=== PATIENT | female | born 1985 | race American Indian/Alaskan Native ===

== ENCOUNTER 2016-11-26 16:42 | Outpatient (CLI) | payer MEDICAID ==
[2016-11-26] MEDS ORDERED: LACTATED RINGERS 500 ML IV ONE (17:22)
[2016-11-26 18:57] LABS: Hematocrit 33.3 % (30.3-42.9); Hemoglobin 10.5 gm/dl (10.1-14.3); Mean Corpuscular HGB Conc 32 % (30-34); Mean Corpuscular Volume 79 fl (79-97); Platelet Count 213 K/mm3 (140-440); Red Blood Count 4.24 M/mm3 (3.65-5.03); Red Cell Distribution Width 15.9 % (13.2-15.2); White Blood Count 8.3 K/mm3 (4.5-11.0)
[2016-11-26 18:59] LABS: Mean Corpuscular Hemoglobin 25 pg (28-32)
[2016-11-26 19:00] LABS: Bacteria,Urine 4+ /HPF (Negative); Bilirubin,Urine NEG (Negative); Blood,Urine NEG (Negative); Ketones,Urine 80 mg/dL (Negative); Leukocyte Esterase,Urine NEG (Negative); Mucus,Urine FEW /HPF; Nitrite,Urine NEG (Negative); Urobilinogen,Urine < 2.0 mg/dL (<2.0)
[2016-11-26 19:13] LABS: Lactate Dehydrogenase 139 units/L (91-180); Uric Acid 6.3 mg/dL (3.5-7.6)
[2016-11-26 19:23] LABS: Alanine Aminotransferase < 5 units/L (7-56)
[2016-11-26 20:00] VITALS: BP 103/55
[2016-11-26] MEDS ORDERED: VISTARIL PO ONE (20:19)
== END 2016-11-26 20:58 | disposition home or self-care (01) ==
LOC: TRG 16:42
PROVIDERS: ATTEND Obstetrics & Gynecology
DX: O47.03 False labor before 37 completed weeks of gestation, third trimester (principal); Z3A.36 36 weeks gestation of pregnancy
CPT/HCPCS: 36415; 81001; 82565; 83615; 84450; 84460; 84550; 85027; Q0177

== ENCOUNTER 2016-12-10 08:11 | Inpatient (IN) | payer MEDICAID ==
[2016-12-10] MEDS ORDERED: LACTATED RINGERS 1,000 ML ONE (08:27)
--- NOTE | 2016-12-10 09:11 | Ultrasound Report ---
OB LIMITED INDICATION: Presentation. COMPARISON: None similar at this institution. TECHNIQUE: Transabdominal grayscale ultrasound with Doppler interrogation. Gestation: Duron Position: Cephalic, face up Heart Rate: 150 BPM
[2016-12-10 10:48] LABS: Hematocrit 31.9 % (30.3-42.9); Hemoglobin 10.1 gm/dl (10.1-14.3); Mean Corpuscular HGB Conc 32 % (30-34); Mean Corpuscular Volume 76 fl (79-97); Platelet Count 202 K/mm3 (140-440); Red Blood Count 4.22 M/mm3 (3.65-5.03); Red Cell Distribution Width 16.7 % (13.2-15.2); White Blood Count 8.4 K/mm3 (4.5-11.0)
[2016-12-10] MEDS: PITOCin/NS 30 UNIT/500ML 30 UNITS/500 ML BAG IV SCH ×8 (10:50→15:39)
[2016-12-10 10:51] LABS: Mean Corpuscular Hemoglobin 24 pg (28-32)
[2016-12-10] MEDS ORDERED: MINERAL OIL PO PRN (11:00)
[2016-12-10] MEDS ORDERED: NARCAN 0.4 MG/1 ML IV PRN (11:00)
[2016-12-10] MEDS ORDERED: SUBLIMAZE IV PRN (11:00)
[2016-12-10] MEDS ORDERED: ZOFRAN IV PRN ×2 (11:00→22:37)
[2016-12-10] MEDS ORDERED: XYLOCAINE 2% INFILTRATI ONE ×2 (11:00→19:37)
[2016-12-10] MEDS ORDERED: PEPCID IV SCH (11:00)
[2016-12-10] MEDS ORDERED: PITOCin/NS 20 UNIT/1000ML DRIP 20 UNITS/1,000 ML BAG IV SCH (11:00)
[2016-12-10] MEDS ORDERED: STADOL IV PRN (11:00)
[2016-12-10] MEDS ORDERED: ePHEDrine SULFATE IV PRN ×2 (11:00→14:39)
[2016-12-10] MEDS ORDERED: BRETHINE SUB-Q PRN (11:00)
[2016-12-10] MEDS ORDERED: PERCOCET 5/325 PO PRN (11:00)
[2016-12-10] MEDS: LACTATED RINGERS 1,000 ML IV SCH ×3 (11:04→14:10)
[2016-12-10] MEDS ORDERED: BRETHINE IVP PRN (11:30)
--- NOTE | 2016-12-10 11:42 | History and Physical Report ---
History of Present Illness Date of examination: 12/10/16 Date of admission: 12/10/16 08:37 Chief complaint: My water broke (clear fluid) at 0705 this morning. History of present illness: Late transfer of care at 34 1/7 Weeks from My [employer], co managed with [facility] due to obesity and excessive Ibuprofen use. Non-compliant with 3hour GTT; abnormal 1hour GTT. 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 Hx of Piuitary Adenoma. course complicated by Chronic low back pain and a abnormal Quad screen (managed by [facility]). Past History Past Medical History: other (Pituitary Ademona) Past Surgical History: cholecystectomy (2008), section (2013), other ( Brain (2014)) Family/Genetic History: diabetes ((MGM, MGF)), hypertension (MGM), stroke ( father, MGM), cancer (PGF: Stomach Ca) Social history: - Obstetrical History Expected Date of Delivery: 12/22/16 Actual Gestation: 38 Week(s) 2 Day(s) : 8 Para: 3 Hx # Term Pregnancies: 4 Number of Living Children: 4 #1 Gender: Male year: 2,[birth year] Birthweight: 4.054 kg Method of Delivery: Vaginal Gestational age at delivery: 41 Complications: none #2 Infant Gender: Female year: 2,009 Birthweight: 3.26 kg Method of Delivery: Vaginal Gestational age at delivery: 39 #3 Infant Gender: Female year: 2,014 Birthweight: 3.118 kg Method of Delivery: Gestational age at delivery: 39 Complications: none #4 Gender: Female year: 2,006 Birthweight: 3.005 kg Method of Delivery: Gestational age at delivery: 39 Medications and Allergies Allergies Allergy/AdvReac Type Severity Reaction Status Date / Time metoclopramide HCl Allergy Severe Swelling Verified 11/26/16 17:20 [From Reglan] Penicillins Allergy Severe Swelling Verified 11/26/16 17:20 Home Medications Medication Instructions Recorded Confirmed Last Taken Type No Known Home Medications [No 12/10/16 12/10/16 Unknown History Reported Home Medications] Active Meds: Active Medications Butorphanol Tartrate (Stadol) 2 mg IV Q2H PRN PRN Reason: Pain , Severe (7-10) Ephedrine Sulfate (Ephedrine Sulfate) 10 mg IV Q2M PRN PRN Reason: Hypotension Stop: 12/11/16 10:59 Famotidine (Pepcid) 20 mg IV BID COREY Last Admin: 12/10/16 11:05 Dose: 20 mg Fentanyl (Sublimaze) 100 mcg IV Q2H PRN PRN Reason: Labor Pain Lactated Ringer's (Lactated Ringers) 1,000 mls @ 125 mls/hr IV DIRECT COREY Last Admin: 12/10/16 11:04 Dose: 125 mls/hr Oxytocin/Sodium Chloride (Pitocin/Ns 20 Unit/1000ml Drip) 20 units in 1,000 mls @ 125 mls/hr IV DIRECT COREY Oxytocin/Sodium Chloride (Pitocin/Ns 30 Unit/500ml) 30 units in 500 mls @ 2 mls /hr IV TITR CROEY; 2 MILLIUNITS/MIN PRN Reason: Protocol Last Admin: 12/10/16 11:24 Dose: 4 milliunits/min, 4 mls/hr Influenza Virus Vaccine Quadrival (Fluarix Quad 4067-0251(36 Mos+)) 0.5 ml IM .ONCE ONE Stop: 12/11/16 12:01 Mineral Oil (Mineral Oil) 30 ml PO QHS PRN PRN Reason: Constipation Naloxone HCl (Narcan 0.4 Mg/1 Ml) 0.1 mg IV Q2MIN PRN PRN Reason: Res Rate </= 8 or 02 SAT < 92% Ondansetron HCl (Zofran) 4 mg IV Q8H PRN PRN Reason: Nausea And Vomiting Oxycodone/Acetaminophen (Percocet 5/325) 2 tab PO Q6H PRN PRN Reason: Pain, Moderate (4-6) Last Admin: 12/10/16 11:09 Dose: 2 tab Review of Systems All systems: negative - Vital Signs Vital signs: Vital Signs Temp Pulse Resp BP Pulse Ox 98.6 F 123 H 20 131/82 99 12/10/16 09:54 12/10/16 09:54 12/10/16 09:54 12/10/16 09:54 12/10/16 09:54 Temp Pulse Resp BP Pulse Ox 98.6 F 121 H 20 141/68 98 12/10/16 09:54 12/10/16 11:28 12/10/16 10:53 12/10/16 11:28 12/10/16 10:41 - Physical Exam Breasts: Positive: normal Cardiovascular: Regular rate Lungs: Positive: Clear to auscultation, Normal air movement Abdomen: Positive: normal appearance, soft, normal bowel sounds Genitourinary (Female): Positive: normal external genitalia, normal perenium Uterus: Positive: enlarged Anus/Rectum: Positive: normal perianal skin Extremities: Positive: normal - Obstetrical FHR: category 1 Cervical Dilatation: 4 (Vtx, leaking a moderate amount of clear fluid) Cervical Effacement Percentage: 60 station: -3 Uterine Contraction Pattern: Irregular Uterine Tone Measurement Phase: Resting Uterine Contraction Intensity: Mild Results Result Diagrams: 12/10/16 09:25 Abnormal lab results 12/10/16 Range/Units 09:25 MCV 76 L (79-97) fl MCH 24 L (28-32) pg RDW 16.7 H (13.2-15.2) % All other labs normal. Assessment and Plan A: IUP @ 38 2/7 Weeks Category I Tracing PROM Previous GBS Negative P: Admit to L&D per Routine orders IUPC Pitocin Induction Consult with Dr. Augilar due to Previous
[2016-12-10] MEDS ORDERED: NARCAN 2 MG/2 ML IV PRN (14:33)
--- NOTE | 2016-12-10 14:33 | Anesthesia Consultation ---
Anesthesia Consult and Med Hx Date of service: 12/10/16 - Airway Anesthetic Teeth Evaluation: Good ROM Head & Neck: Adequate Mental/Hyoid Distance: Adequate Mallampati Class: Class II Intubation Access Assessment: Good - Pulmonary Exam CTA: Yes - Cardiac Exam Cardiac Exam: No Murmur - Pre-Operative Health Status ASA Pre-Surgery Classification: ASA2 Proposed Anesthetic Plan: Epidural - Pulmonary Hx Asthma: No - Cardiovascular System Hx Hypertension: No - Central Nervous System Hx Seizures: No Hx Psychiatric Problems: No - Endocrine Hx Renal Disease: No Hx Hypothyroidism: No Hx Hyperthyroidism: No - Hematic Hx Anemia: No Hx Sickle Cell Disease: No - Other Systems Hx Alcohol Use: No
[2016-12-10] MEDS ORDERED: fentaNYL-BUPIV 2 MCG/ML-0.125% 200 MCG/100 ML BAG EPIDURAL SCH (15:00)
[2016-12-10] MEDS ORDERED: XYLOCAINE MPF 2% ONE (16:00)
--- NOTE | 2016-12-10 16:04 | Progress Note ---
Subjective Date of service: 12/10/16 (10 cc epidural bolus of 2% MPF lidocaine for pain relief @ 2935.) Objective - Constitutional Vitals: Vital Signs - 12hr 12/10/16 12/10/16 12/10/16 09:54 09:56 09:57 Temperature 98.6 F Pulse Rate 123 H 120 H 123 H Respiratory 20 Rate Blood Pressure 131/82 Blood Pressure 131/82 [Right] O2 Sat by Pulse 99 99 Oximetry 12/10/16 12/10/16 12/10/16 10:36 10:41 10:53 Temperature Pulse Rate 121 H 129 H 122 H Respiratory 20 Rate Blood Pressure Blood Pressure 114/65 [Right] O2 Sat by Pulse 98 98 Oximetry 12/10/16 12/10/16 12/10/16 10:55 11:28 11:56 Temperature Pulse Rate 122 H 121 H 129 H Respiratory Rate Blood Pressure 114/65 141/68 129/68 Blood Pressure [Right] O2 Sat by Pulse Oximetry 12/10/16 12/10/16 12/10/16 12:24 13:00 13:23 Temperature Pulse Rate 112 H 118 H 107 H Respiratory Rate Blood Pressure 115/64 124/72 130/78 Blood Pressure [Right] O2 Sat by Pulse Oximetry 12/10/16 12/10/16 12/10/16 13:26 13:31 13:36 Temperature Pulse Rate 114 H 109 H 122 H Respiratory Rate Blood Pressure Blood Pressure [Right] O2 Sat by Pulse 96 97 97 Oximetry 12/10/16 12/10/16 12/10/16 13:41 13:46 13:51 Temperature Pulse Rate 107 H 115 H 115 H Respiratory Rate Blood Pressure Blood Pressure [Right] O2 Sat by Pulse 97 97 98 Oximetry 12/10/16 12/10/16 12/10/16 13:56 13:57 14:01 Temperature Pulse Rate 113 H 114 H 118 H Respiratory Rate Blood Pressure 124/80 Blood Pressure [Right] O2 Sat by Pulse 98 98 Oximetry 12/10/16 12/10/16 12/10/16 14:59 15:01 15:02 Temperature Pulse Rate 123 H 136 H 146 H Respiratory Rate Blood Pressure 129/79 109/65 101/61 Blood Pressure [Right] O2 Sat by Pulse Oximetry 12/10/16 12/10/16 12/10/16 15:05 15:06 15:09 Temperature Pulse Rate 129 H 129 H 139 H Respiratory Rate Blood Pressure 120/68 120/73 106/61 Blood Pressure [Right] O2 Sat by Pulse 97 Oximetry 12/10/16 12/10/16 12/10/16 15:11 15:12 15:14 Temperature Pulse Rate 126 H 121 H 127 H Respiratory Rate Blood Pressure 133/75 130/70 121/66 Blood Pressure [Right] O2 Sat by Pulse 97 Oximetry 12/10/16 12/10/16 12/10/16 15:16 15:19 15:21 Temperature Pulse Rate 126 H 118 H 117 H Respiratory Rate Blood Pressure 127/71 140/93 130/75 Blood Pressure [Right] O2 Sat by Pulse 96 Oximetry 12/10/16 12/10/16 12/10/16 15:22 15:27 15:32 Temperature Pulse Rate 115 H 116 H 123 H Respiratory Rate Blood Pressure Blood Pressure [Right] O2 Sat by Pulse 97 97 98 Oximetry 12/10/16 12/10/16 12/10/16 15:36 15:37 15:42 Temperature Pulse Rate 115 H 118 H 114 H Respiratory Rate Blood Pressure 121/76 Blood Pressure [Right] O2 Sat by Pulse 98 98 Oximetry 12/10/16 12/10/16 12/10/16 15:47 15:51 15:52 Temperature Pulse Rate 108 H 112 H 114 H Respiratory Rate Blood Pressure 133/86 Blood Pressure [Right] O2 Sat by Pulse 99 95 Oximetry 12/10/16 12/10/16 15:57 16:02 Temperature Pulse Rate 114 H 120 H Respiratory Rate Blood Pressure Blood Pressure [Right] O2 Sat by Pulse 93 98 Oximetry - Labs CBC & Chem 7: 12/10/16 09:25 Labs: Abnormal lab results 12/10/16 Range/Units 09:25 MCV 76 L (79-97) fl MCH 24 L (28-32) pg RDW 16.7 H (13.2-15.2) %
--- NOTE | 2016-12-10 17:09 | Progress Note ---
Assessment and Plan A: IUP @ 38 3/7 Weeks P: -Position changes -Continue present care -Anticipate normal vaginal delivery Subjective - Subjective Date of service: 12/10/16 Interval history: Patient currently 5-6 cm dilated, -3 station. appears OP position Patient reports: movement normal, contractions, no loss of fluid, no vaginal bleeding Objective - Vital Signs Vital Signs: Vital Signs - 12hr 12/10/16 12/10/16 12/10/16 09:54 09:56 09:57 Temperature 98.6 F Pulse Rate 123 H 120 H 123 H Respiratory 20 Rate Blood Pressure 131/82 Blood Pressure 131/82 [Right] O2 Sat by Pulse 99 99 Oximetry 12/10/16 12/10/16 12/10/16 10:36 10:41 10:53 Temperature Pulse Rate 121 H 129 H 122 H Respiratory 20 Rate Blood Pressure Blood Pressure 114/65 [Right] O2 Sat by Pulse 98 98 Oximetry 12/10/16 12/10/16 12/10/16 10:55 11:28 11:56 Temperature Pulse Rate 122 H 121 H 129 H Respiratory Rate Blood Pressure 114/65 141/68 129/68 Blood Pressure [Right] O2 Sat by Pulse Oximetry 12/10/16 12/10/16 12/10/16 12:24 13:00 13:23 Temperature Pulse Rate 112 H 118 H 107 H Respiratory Rate Blood Pressure 115/64 124/72 130/78 Blood Pressure [Right] O2 Sat by Pulse Oximetry 12/10/16 12/10/16 12/10/16 13:26 13:31 13:36 Temperature Pulse Rate 114 H 109 H 122 H Respiratory Rate Blood Pressure Blood Pressure [Right] O2 Sat by Pulse 96 97 97 Oximetry 12/10/16 12/10/16 12/10/16 13:41 13:46 13:51 Temperature Pulse Rate 107 H 115 H 115 H Respiratory Rate Blood Pressure Blood Pressure [Right] O2 Sat by Pulse 97 97 98 Oximetry 12/10/16 12/10/16 12/10/16 13:56 13:57 14:01 Temperature Pulse Rate 113 H 114 H 118 H Respiratory Rate Blood Pressure 124/80 Blood Pressure [Right] O2 Sat by Pulse 98 98 Oximetry 12/10/16 12/10/16 12/10/16 14:59 15:01 15:02 Temperature Pulse Rate 123 H 136 H 146 H Respiratory Rate Blood Pressure 129/79 109/65 101/61 Blood Pressure [Right] O2 Sat by Pulse Oximetry 12/10/16 12/10/16 12/10/16 15:05 15:06 15:09 Temperature Pulse Rate 129 H 129 H 139 H Respiratory Rate Blood Pressure 120/68 120/73 106/61 Blood Pressure [Right] O2 Sat by Pulse 97 Oximetry 12/10/16 12/10/16 12/10/16 15:11 15:12 15:14 Temperature Pulse Rate 126 H 121 H 127 H Respiratory Rate Blood Pressure 133/75 130/70 121/66 Blood Pressure [Right] O2 Sat by Pulse 97 Oximetry 12/10/16 12/10/16 12/10/16 15:16 15:19 15:21 Temperature Pulse Rate 126 H 118 H 117 H Respiratory Rate Blood Pressure 127/71 140/93 130/75 Blood Pressure [Right] O2 Sat by Pulse 96 Oximetry 12/10/16 12/10/16 12/10/16 15:22 15:27 15:32 Temperature Pulse Rate 115 H 116 H 123 H Respiratory Rate Blood Pressure Blood Pressure [Right] O2 Sat by Pulse 97 97 98 Oximetry 12/10/16 12/10/16 12/10/16 15:36 15:37 15:42 Temperature Pulse Rate 115 H 118 H 114 H Respiratory Rate Blood Pressure 121/76 Blood Pressure [Right] O2 Sat by Pulse 98 98 Oximetry 12/10/16 12/10/16 12/10/16 15:47 15:51 15:52 Temperature Pulse Rate 108 H 112 H 114 H Respiratory Rate Blood Pressure 133/86 Blood Pressure [Right] O2 Sat by Pulse 99 95 Oximetry 12/10/16 12/10/16 12/10/16 15:57 16:02 16:06 Temperature Pulse Rate 114 H 120 H 126 H Respiratory Rate Blood Pressure 138/80 Blood Pressure [Right] O2 Sat by Pulse 93 98 Oximetry 12/10/16 12/10/16 12/10/16 16:07 16:12 16:15 Temperature Pulse Rate 118 H 131 H 125 H Respiratory Rate Blood Pressure Blood Pressure [Right] O2 Sat by Pulse 95 97 91 Oximetry 12/10/16 12/10/16 12/10/16 16:17 16:21 16:22 Temperature Pulse Rate 121 H 124 H 128 H Respiratory Rate Blood Pressure 130/70 Blood Pressure [Right] O2 Sat by Pulse 97 92 93 Oximetry 12/10/16 12/10/16 12/10/16 16:27 16:28 16:32 Temperature Pulse Rate 130 H 126 H 123 H Respiratory Rate Blood Pressure Blood Pressure [Right] O2 Sat by Pulse 97 94 98 Oximetry 12/10/16 12/10/16 12/10/16 16:36 16:37 16:38 Temperature Pulse Rate 126 H 135 H 128 H Respiratory Rate Blood Pressure 132/89 Blood Pressure [Right] O2 Sat by Pulse 96 90 Oximetry 12/10/16 12/10/16 12/10/16 16:42 16:47 16:52 Temperature Pulse Rate 133 H 133 H 129 H Respiratory Rate Blood Pressure 130/73 Blood Pressure [Right] O2 Sat by Pulse 98 98 97 Oximetry 12/10/16 12/10/16 12/10/16 16:57 16:59 17:02 Temperature Pulse Rate 134 H 130 H 148 H Respiratory Rate Blood Pressure 133/77 160/65 Blood Pressure [Right] O2 Sat by Pulse 98 Oximetry 12/10/16 12/10/16 17:07 17:09 Temperature Pulse Rate 126 H 121 H Respiratory Rate Blood Pressure 112/62 110/60 Blood Pressure [Right] O2 Sat by Pulse Oximetry - Exam Cervical Dilatation: 5.5 station: -3 - Labs Labs: Abnormal Labs 12/10/16 09:25 MCV 76 L MCH 24 L RDW 16.7 H Laboratory Results - last 24 hr 12/10/16 12/10/16 12/10/16 09:25 09:25 09:25 WBC 8.4 RBC 4.22 Hgb 10.1 Hct 31.9 MCV 76 L MCH 24 L MCHC 32 RDW 16.7 H Plt Count 202 RPR Nonreactive Blood Type O POSITIVE Antibody Screen Negative
[2016-12-10] MEDS ORDERED: METHERGINE IM ONE ×2 (21:00→21:06)
[2016-12-10] MEDS ORDERED: CYTOTEC PR ONE (21:00)
[2016-12-10] MEDS ORDERED: CYTOTEC ONE (21:06)
--- NOTE | 2016-12-10 22:36 | Procedure Note ---
OB Delivery Note - Delivery Date of Delivery: 12/10/16 Estimated blood loss: 200cc - Vaginal Delivery presentation: vertex Delivery position: OA Delivery induction: oxytocin Delivery augmentation: pitocin Delivery monitor: external FHT, internal uterine Route of delivery: Delivery placenta: spontaneous Delivery cord: 3 umbilical vessels Episiotomy: none Delivery laceration: 1st degree Delivery repair: vicryl Anesthesia: epidural - A at 1 minute: 7 at 5 minutes: 9 Gender: Male (delivery at 20:58, weight is 7#11 or 3485 g)
[2016-12-10] MEDS ORDERED: TYLENOL PO PRN (22:37)
[2016-12-10] MEDS ORDERED: DULCOLAX PR PRN (22:37)
[2016-12-10] MEDS ORDERED: ANUCORT-HC PR PRN (22:37)
[2016-12-10] MEDS ORDERED: PHENERGAN PR PRN (22:37)
[2016-12-10] MEDS ORDERED: MILK OF MAGNESIA PO PRN (22:37)
[2016-12-10] MEDS ORDERED: TUCKS PAD TP PRN (22:37)
[2016-12-10] MEDS ORDERED: LANSINOH TP PRN (22:37)
[2016-12-10] MEDS ORDERED: DERMOPLAST TP PRN (22:37)
[2016-12-10] MEDS ORDERED: PHENERGAN PO PRN (22:37)
[2016-12-10] MEDS ORDERED: BENADRYL PO PRN (22:37)
[2016-12-10] MEDS ORDERED: SODIUM CHLORIDE FLUSH SYRINGE 10 ML IV PRN (23:00)
[2016-12-10] MEDS ORDERED: SENOKOT S PO SCH (23:00)
[2016-12-11] MEDS: PERCOCET 5/325 PO PRN ×5 (00:26→21:07)
[2016-12-11] MEDS: MOTRIN PO SCH ×4 (00:26→18:30)
--- NOTE | 2016-12-11 09:58 | Progress Note ---
Subjective - Subjective Date of service: 12/11/16 Principal diagnosis: Patient reports: appetite normal : doing well Objective - Vital Signs Latest vital signs: Vital Signs Temp Pulse Resp BP BP Pulse Ox 12/11/16 04:35 99.3 F 111 H 101/60 12/11/16 00:00 98.9 F 121 H 20 115/60 12/10/16 23:30 99.9 F H 125 H 20 146/76 12/10/16 22:48 125 H 99 12/10/16 22:43 129 H 97 12/10/16 22:38 121 H 144/89 99 12/10/16 22:33 122 H 98 12/10/16 22:30 126 H 141/69 12/10/16 22:29 122 H 159/59 12/10/16 22:28 124 H 98 12/10/16 22:23 126 H 182/73 98 12/10/16 22:22 121 H 76 L 12/10/16 22:11 120 H 98 12/10/16 22:08 120 H 127/86 12/10/16 22:06 122 H 99 12/10/16 22:02 85 12/10/16 22:01 125 H 100 12/10/16 22:00 125 H 122/62 12/10/16 21:58 126 H 152/81 12/10/16 21:57 125 H 151/100 12/10/16 21:56 119 H 100 12/10/16 21:55 117 H 152/101 12/10/16 21:54 120 H 147/100 12/10/16 21:53 130 H 146/103 12/10/16 21:51 124 H 99 12/10/16 21:41 126 H 143/101 12/10/16 21:35 32 L 72 L 12/10/16 21:32 131 H 100 12/10/16 21:27 139 H 138/88 99 12/10/16 20:29 131 H 123/61 12/10/16 20:26 136 H 121/62 12/10/16 19:32 137 H 166/85 12/10/16 19:29 139 H 160/89 12/10/16 18:15 131 H 110/57 12/10/16 18:01 133 H 115/55 12/10/16 17:46 133 H 97/56 12/10/16 17:31 111 H 124/60 12/10/16 17:15 125 H 116/58 12/10/16 17:13 130 H 117/68 12/10/16 17:11 127 H 110/64 12/10/16 17:09 121 H 110/60 12/10/16 17:07 126 H 112/62 12/10/16 17:02 148 H 160/65 12/10/16 16:59 130 H 133/77 12/10/16 16:57 134 H 98 12/10/16 16:52 129 H 130/73 97 12/10/16 16:47 133 H 98 12/10/16 16:42 133 H 98 12/10/16 16:38 128 H 90 12/10/16 16:37 135 H 96 12/10/16 16:36 126 H 132/89 12/10/16 16:32 123 H 98 12/10/16 16:28 126 H 94 12/10/16 16:27 130 H 97 12/10/16 16:22 128 H 93 12/10/16 16:21 124 H 130/70 92 12/10/16 16:17 121 H 97 12/10/16 16:15 125 H 91 12/10/16 16:12 131 H 97 12/10/16 16:07 118 H 95 12/10/16 16:06 126 H 138/80 12/10/16 16:02 120 H 98 12/10/16 16:00 98.7 F 124 H 20 138/80 96 12/10/16 15:57 114 H 93 12/10/16 15:52 114 H 95 12/10/16 15:51 112 H 133/86 12/10/16 15:47 108 H 99 12/10/16 15:42 114 H 98 12/10/16 15:37 118 H 98 12/10/16 15:36 115 H 121/76 12/10/16 15:32 123 H 98 12/10/16 15:27 116 H 97 12/10/16 15:22 115 H 97 12/10/16 15:21 117 H 130/75 12/10/16 15:19 118 H 140/93 12/10/16 15:16 126 H 127/71 96 12/10/16 15:14 127 H 121/66 12/10/16 15:12 121 H 130/70 12/10/16 15:11 126 H 133/75 97 12/10/16 15:09 139 H 106/61 12/10/16 15:06 129 H 120/73 97 12/10/16 15:05 129 H 120/68 12/10/16 15:02 146 H 101/61 12/10/16 15:01 136 H 109/65 12/10/16 14:59 123 H 129/79 12/10/16 14:01 118 H 98 12/10/16 13:57 114 H 124/80 12/10/16 13:56 113 H 98 12/10/16 13:51 115 H 98 12/10/16 13:46 115 H 97 12/10/16 13:41 107 H 97 12/10/16 13:36 122 H 97 12/10/16 13:31 109 H 97 12/10/16 13:26 114 H 96 12/10/16 13:23 107 H 130/78 12/10/16 13:00 118 H 124/72 12/10/16 12:24 112 H 115/64 12/10/16 11:56 129 H 129/68 12/10/16 11:28 121 H 141/68 12/10/16 10:55 122 H 114/65 12/10/16 10:53 122 H 20 114/65 12/10/16 10:41 129 H 98 12/10/16 10:36 121 H 98 12/10/16 09:57 123 H 131/82 Intake and Output 12/10/16 12/11/16 12/11/16 22:59 06:59 14:59 Intake Total 1050 240 Output Total 700 2600 Balance 350 -2360 Intake: IV 1050 PITOCin/NS 20 UNIT/1000ML 850 DRIP 20 units In 1,000 ml @ 125 mls/hr IV DIRECT COREY Rx#:[id number] PITOCin/NS 30 UNIT/500ML 200 30 units In 500 ml @ 2 MILLIUNITS/MIN 2 mls/hr IV TITR COREY Rx#:[id number] Oral 240 Output: Urine 600 2600 Indwelling Catheter 600 Void 2600 Emesis 100 Other: Total, Intake Amount 240 Total, Output Amount 600 900 - Exam Breasts: Present: deferred Cardiovascular: Present: Regular rate Lungs: Present: Clear to auscultation Abdomen: Present: soft Vulva: both: normal Uterus: Present: fundal height below umbilicus Extremities: Present: normal - Labs Labs: Abnormal lab results 12/10/16 Range/Units 09:25 MCV 76 L (79-97) fl MCH 24 L (28-32) pg RDW 16.7 H (13.2-15.2) %
--- NOTE | 2016-12-11 10:05 | Discharge Summary ---
Providers - Providers Date of Admission: 12/10/16 08:37 Date of discharge: 12/12/16 Attending physician: MARIBEL SCHAEFER MD Primary care physician: MARIBEL SCHAEFER MD Hospitalization Reason for admission: active labor Delivery: Episiotomy: none Laceration: 1st degree complications: none Discharge diagnosis: IUP at term delivered baby: male Condition at discharge: Good Disposition: DC-01 TO HOME OR SELFCARE Plan - Discharge Medications Prescriptions: HYDROcodone/APAP 5-325 [Isabella 5/325] 1 each PO Q6HR PRN #10 tablet PRN Reason: Pain Ibuprofen [Motrin 600 MG tab] 600 mg PO Q8H PRN #30 tablet PRN Reason: Pain Multivitamin with Iron [Multivitamins with Iron] 1 each PO DAILY #30 tablet - Provider Discharge Summary Activity: routine, no sex for 6 weeks, no strenuous exercise Diet: routine Instructions: routine Additional instructions: [] Smoking cessation referral if applicable(refer to patient education folder for contact #) [] Refer to [facility]'s [facility] Booklet Call your doctor immediately for: * Fever > 100.5 * Heavy vaginal bleeding ( >1 pad per hour) * Severe persistent headache * Shortness of breath * Reddened, hot, painful area to leg or breast * Drainage or odor from incision. * Keep incision clean and dry at all times and follow doctor's instructions regarding bathing/showering - Follow up plan Follow up: [facility] [Provider Group] - 6 Weeks
[2016-12-11] MEDS: FEOSOL PO SCH (10:27)
[2016-12-11] MEDS: PRENATAL VITAMIN PO SCH (10:27)
[2016-12-11] MEDS: COLACE PO SCH (10:27)
[2016-12-11 11:20] LABS: Hematocrit 28.5 % (30.3-42.9)
[2016-12-11] MEDS ORDERED: Fluarix Quad 2017-2018(36 MOS+) IM ONE (12:00)
--- NOTE | 2016-12-11 12:47 | Progress Note ---
Subjective Date of service: 12/11/16 Principal diagnosis: Interval history: 1st day after normal vaginal delivery Patient is in the bed, comfortable. Pain is well controlled with pain meds. Ambulated well. No residual neurological deficit. No anesthesia complications Objective - Constitutional Vitals: Vital Signs - 12hr 12/11/16 12/11/16 12/11/16 04:35 08:58 11:11 Temperature 99.3 F 97.5 F L Pulse Rate 111 H 95 H Respiratory 18 20 Rate Blood Pressure 101/60 112/61 [Right] - Labs CBC & Chem 7: 12/11/16 10:07 Labs: Abnormal lab results 12/11/16 Range/Units 10:07 Hgb 9.0 L (10.1-14.3) gm/dl Hct 28.5 L (30.3-42.9) %
[2016-12-11] MEDS ORDERED: M-M-R II VACCINE SUB-Q ONE (22:37)
[2016-12-12] MEDS: PERCOCET 5/325 PO PRN ×5 (02:23→16:08)
[2016-12-12] MEDS: FEOSOL PO SCH ×2 (02:25→10:17)
[2016-12-12] MEDS: COLACE PO SCH (02:26)
[2016-12-12] MEDS: MOTRIN PO SCH ×2 (02:26→12:39)
[2016-12-12] MEDS ORDERED: BOOSTRIX IM ONE (06:00)
[2016-12-12] MEDS: PRENATAL VITAMIN PO SCH (10:17)
[2016-12-12 17:11] VITALS: BP 108/66
== END 2016-12-12 18:10 | disposition home or self-care (01) | DRG 774 ==
LOC: TRG 08:11 → LD 08:37 → OB 23:01
PROVIDERS: ADMIT Obstetrics & Gynecology; ATTEND Obstetrics & Gynecology
PROC: 10E0XZZ Delivery of Products of Conception, External Approach (ICD-10-PCS; principal; 2016-12-10)
PROC: 3E033VJ Introduction of Other Hormone into Peripheral Vein, Percutaneous Approach (ICD-10-PCS; 2016-12-10)
PROC: 00HU33Z Insertion of Infusion Device into Spinal Canal, Percutaneous Approach (ICD-10-PCS; 2016-12-10)
PROC: 0HQ9XZZ Repair Perineum Skin, External Approach (ICD-10-PCS; 2016-12-10)
PROC: 3E0S3CZ (ICD-10-PCS; 2016-12-10)
PROC: 3E0234Z Introduction of Serum, Toxoid and Vaccine into Muscle, Percutaneous Approach (ICD-10-PCS; 2016-12-12)
DX: O42.02 Full-term premature rupture of membranes, onset of labor within 24 hours of rupture (principal); O98.52 Other viral diseases complicating childbirth; O34.211 Maternal care for low transverse scar from previous cesarean delivery; O70.0 First degree perineal laceration during delivery; O99.214 Obesity complicating childbirth; E66.9 Obesity, unspecified; O75.89 Other specified complications of labor and delivery; F19.90 Other psychoactive substance use, unspecified, uncomplicated; B00.9 Herpesviral infection, unspecified; G89.29 Other chronic pain; M54.5 Low back pain; Z37.0 Single live birth; Z3A.38 38 weeks gestation of pregnancy; Z68.35 Body mass index [BMI] 35.0-35.9, adult; Z23 Encounter for immunization
CPT/HCPCS: 36415; 76815; 85014; 85018; 85027; 86592; 86850; 86900; 86901; 90471; 90715; 99211; A6250; G0463; J2210; J2405; J2590; J3010; J7120

== ENCOUNTER 2017-01-12 20:22 | Emergency (ER) | payer MEDICAID | END 2017-01-12 20:23 | disposition left against medical advice (07) | LOC: ED 20:22 | DX: Z53.21 Procedure and treatment not carried out due to patient leaving prior to being seen by health care provider (principal) ==

== ENCOUNTER 2018-07-05 23:18 | Outpatient (CLI) | payer MEDICAID ==
[2018-07-05 23:34] VITALS: BP 98/64
[2018-07-06] MEDS ORDERED: LACTATED RINGERS 1,000 ML IV ONE (00:08)
[2018-07-06 01:29] LABS: Hematocrit 32.9 % (30.3-42.9); Hemoglobin 10.8 gm/dl (10.1-14.3); Mean Corpuscular HGB Conc 33 % (30-34); Mean Corpuscular Volume 78 fl (79-97); Platelet Count 206 K/mm3 (140-440); Red Blood Count 4.24 M/mm3 (3.65-5.03); Red Cell Distribution Width 16.8 % (13.2-15.2)
[2018-07-06 01:49] LABS: Albumin 3.3 g/dL (3.9-5); BUN/Creatinine Ratio 10; Blood Urea Nitrogen 5 mg/dL (7-17); Calcium 8.9 mg/dL (8.4-10.2); Hemolysis Index 104
[2018-07-06 03:10] LABS: Alanine Aminotransferase 7 units/L (7-56)
--- NOTE | 2018-07-06 03:30 | Ultrasound Report ---
PROCEDURE: US OB BPP WO NON-STRESS TECHNIQUE: Real-time limited sonographic examination was performed for evaluation of for each fetus with image documentation (1 or more fetuses). HISTORY: wellbeing COMPARISONS: None . FINDINGS: breathing movements: 2. movements: 2. posture and tone: 2. Qualitative amniotic fluid volume: 2. Total score: 8/8. heart rate: 169 bpm. IMPRESSION: Normal biophysical profile. This document is electronically signed by James Jernigan MD., July 06 2018 03:28:48 AM ET
--- NOTE | 2018-07-06 03:32 | Ultrasound Report ---
PROCEDURE: US OB LIMITED TECHNIQUE: Real-time limited sonographic examination was performed for evaluation of for each fetus with image documentation (1 or more fetuses). HISTORY: BPP; MARY COMPARISONS: None . FINDINGS: Fetus is in a cephalic presentation. Amniotic fluid index is 7.6 cm which is at the lower limit of no rmal. Heart rate is 169 bpm. IMPRESSION: Amniotic fluid index is 7.6 cm. This document is electronically signed by James Jernigan MD., July 06 2018 03:29:57 AM ET
== END 2018-07-06 02:30 | disposition home or self-care (01) ==
LOC: TRG 23:18
PROVIDERS: ATTEND Obstetrics & Gynecology
DX: O36.8130 Decreased fetal movements, third trimester, not applicable or unspecified (principal); O62.9 Abnormality of forces of labor, unspecified; Z3A.38 38 weeks gestation of pregnancy
CPT/HCPCS: 36415; 59025; 76815; 76819; 80053; 85027; 96360; J7120

== ENCOUNTER 2018-07-11 17:35 | Inpatient (IN) | payer MEDICAID ==
[2018-07-11] MEDS ORDERED: BRETHINE SUB-Q ONE (17:57)
--- NOTE | 2018-07-11 20:09 | Ultrasound Report ---
PROCEDURE: US OB LIMITED HISTORY: r/o rupture FINDINGS: Real-time ultrasound of the gravid uterus was performed for amniotic fluid index. Amniotic fluid index was 7.7 cm which is in the low range of normal. cardiac activity is presen t at 152 bpm. The fetus lies in cephalic lie. IMPRESSION: Amniotic fluid index is 7.7 cm. This document is electronically signed by Rafael Johnston MD., July 11 2018 08:07:25 PM ET
[2018-07-11] MEDS ORDERED: BICITRA PO ONE ×2 (20:58→20:59)
[2018-07-11] MEDS ORDERED: PEPCID IV ONE (20:59)
[2018-07-11] MEDS ORDERED: PITOCin/NS 20 UNIT/1000ML DRIP 20 UNITS/1,000 ML BAG IV SCH ×2 (21:00→23:45)
[2018-07-11] MEDS ORDERED: LACTATED RINGERS 1,000 ML IV SCH (21:00)
[2018-07-11 21:26] LABS: Basophils % (Auto) 0.4 % (0.0-1.8); Eosinophils % (Auto) 0.5 % (0.0-4.3); Hematocrit 32.3 % (30.3-42.9); Hemoglobin 10.7 gm/dl (10.1-14.3); Lymphocytes # (Auto) 1.9 K/mm3 (1.2-5.4); Lymphocytes % (Auto) 21.3 % (13.4-35.0); Mean Corpuscular HGB Conc 33 % (30-34); Mean Corpuscular Volume 77 fl (79-97); Monocytes # (Auto) 0.8 K/mm3 (0.0-0.8); Platelet Count 237 K/mm3 (140-440); Red Blood Count 4.19 M/mm3 (3.65-5.03); Red Cell Distribution Width 16.7 % (13.2-15.2)
[2018-07-11] MEDS ORDERED: CLEOCIN 900 MG/50 mL 900 MG/50 ML BAG IV NR (22:01)
[2018-07-11] MEDS ORDERED: METHERGINE IM PRN (22:03)
--- NOTE | 2018-07-11 22:07 | History and Physical Report ---
History of Present Illness Date of examination: 07/11/18 Date of admission: 07/11/18 Chief complaint: SIuP at 38 and 6 days gestation with SROM and in early labor. Previous C/section. History of present illness: Patient is a 32 year old , LMP 09/17/17, EDC 07/19/18 at 38 weeks and 6 days gestation who presented to triage complaining of having fluid leakage since about 4 PM. She also complains of having cramps. She denies any bleeding. She reports good movement. She has a history of previous C/section followed by 2 VBACs. She also had pituitary tumor resection in 2014 and lumbar laminectomy in 2017. Past History Past Medical History: other (Pituitary tumor, lumbar disc disease, obesity.) Past Surgical History: cholecystectomy, section, other (lumbar laminectomy, brain surgery.) LEAD CUSTODIAN History: herpes Family/Genetic History: none Social history: no significant social history - Obstetrical History : 9 Medications and Allergies Allergies Allergy/AdvReac Type Severity Reaction Status Date / Time ampicillin Allergy Severe Anaphylaxis Verified 07/11/18 18:21 metoclopramide HCl Allergy Severe Swelling Verified 11/26/16 17:20 [From Reglan] Penicillins Allergy Severe Swelling Verified 11/26/16 17:20 Home Medications Medication Instructions Recorded Confirmed Last Taken Type Multivitamin with Iron 1 each PO DAILY #30 tablet 12/10/16 07/11/18 07/10/18 09:00 Rx [Multivitamins with Iron] Active Meds: Active Medications Lactated Ringer's (Lactated Ringers) 1,000 mls @ 2,250 mls/hr IV PREOP COREY Stop: 07/12/18 21:27 Oxytocin/Sodium Chloride (Pitocin/Ns 20 Unit/1000ml Drip) 20 units in 1,000 mls @ 0 mls/hr IV TITR COREY - Vital Signs Vital signs: Vital Signs Temp Resp 98.9 F 07/11/18 18:37 07/11/18 18:37 Temp Pulse Resp BP Pulse Ox 98.9 F 07/11/18 18:37 07/11/18 18:37 - Physical Exam Cardiovascular: Normal S1, Normal S2 Lungs: Positive: Clear to auscultation Vulva: both: normal Adnexa: both: normal Deep Tendon Reflex Grade: Normal +2 - Obstetrical FHR: category 1 Uterine Contraction Monitor Mode: External Cervical Dilatation: 4 Cervical Effacement Percentage: 70 station: -2 Uterine Contraction Pattern: Irregular Uterine Contraction Intensity: Mild Results Result Diagrams: 07/11/18 20:53 Abnormal lab results 07/11/18 Range/Units 20:53 MCV 77 L (79-97) fl MCH 26 L (28-32) pg RDW 16.7 H (13.2-15.2) % [place] % (Auto) 9.0 H (0.0-7.3) % All other labs normal. Assessment and Plan - Patient Problems (1) 38 weeks gestation of Current Visit: Yes Status: Acute (2) SROM (spontaneous rupture of membranes) Current Visit: Yes Status: Acute Plan to address problem: Admit to labor floor. Routine preop labs. IV hydration. Keep NPO. monitoring. Admit to labor floor. Patient was counselled for repeat C/section. Risks, benefits, and alternatives of the procedure were discussed in detail with the patient which included but not limited to the risk of infection, hemorrhage requiring blood transfusion, injury to the bowel or bladder and blood vessels. The patient expressed understanding, her questions were answered, and she gave informed consent. Anesthesia notified. (3) Previous section Current Visit: Yes Status: Acute (4) Obesity Current Visit: Yes Status: Acute Qualifiers: Obesity type: due to excess calories (5) Gestational HTN Current Visit: Yes Status: Acute Plan to address problem: Toxemia labs. (6) Anemia Current Visit: Yes Status: Acute Qualifiers: Anemia type: iron deficiency (7) History of benign neoplasm of brain Current Visit: Yes Status: Acute Plan to address problem: Patient has been stable since her surgery in 2014. She has not followed up with her surgeon and has not had any follow up MRI since her surgery.
[2018-07-11] MEDS ORDERED: SUBLIMAZE ONE (22:11)
--- NOTE | 2018-07-11 22:17 | Anesthesia Day of Surgery ---
Anesthesia Day of Surgery - Day of Surgery Patient Examined: Yes Patient H&P Reviewed: Yes Patient is NPO: Yes Beta Blockers: No Cardiac Clearance: No Pulmonary Clearance: No Brandon's Test: N/A
--- NOTE | 2018-07-11 22:17 | Anesthesia Consultation ---
Anesthesia Consult and Med Hx - Airway Anesthetic Teeth Evaluation: Good ROM Head & Neck: Adequate Mental/Hyoid Distance: Adequate Mallampati Class: Class II Intubation Access Assessment: Probably Good - Pulmonary Exam CTA: Yes - Cardiac Exam Cardiac Exam: RRR - Pre-Operative Health Status ASA Pre-Surgery Classification: ASA3 Proposed Anesthetic Plan: Spinal - Pulmonary Hx Smoking: No Hx Asthma: Yes (as a child) Hx Respiratory Symptoms: No SOB: No COPD: No Home Oxygen Therapy: No Hx Pneumonia: No Hx Sleep Apnea: No - Cardiovascular System Hx Hypertension: No Hx Coronary Artery Disease: No Hx Heart Attack/AMI: No Hx Angina: No Hx Percutaneous Transluminal Coronary Angioplasty (PTCA): No Hx Cardia Arrhythmia: No Hx Pacemaker: No Hx Internal Defibrillator: No Hx Valvular Heart Disease: No Hx Heart Murmur: No Hx Peripheral Vascular Disease: No - Central Nervous System Hx Neuromuscular Disorder: No (pituitary tumor removed 2014 in [facility]. No followup. No meds. S/S RUSS) Hx Seizures: No CVA: No Hx Back Pain: Yes (L4-5 laminectomy ) Hx Psychiatric Problems: Yes (post delivery 2013) - Gastrointestinal Hx Ulcer: No Hx Gastroesophageal Reflux Disease: Yes - Endocrine Hx Renal Disease: No Hx End Stage Renal Disease: No Hx Cirrhosis: No Hx Liver Disease: No Hx Insulin Dependent Diabetes: No Hx Non-Insulin Dependent Diabetes: No Hx Thyroid Disease: No Hx Hypothyroidism: No Hx Hyperthyroidism: No - Hematic Hx Anemia: No Hx Sickle Cell Disease: No - Other Systems Hx Alcohol Use: No Hx Substance Use: No Hx Cancer: No Hx Obesity: No - Additional Comments Anesthesia Medical History Comments: Anxiety
[2018-07-11] MEDS ORDERED: DILAUDID IV PRN (22:18)
[2018-07-11] MEDS ORDERED: PHENERGAN PR PRN ×2 (22:18→23:58)
[2018-07-11] MEDS ORDERED: NARCAN 0.4 MG/1 ML IV PRN ×2 (22:18→23:58)
[2018-07-11] MEDS ORDERED: PHENERGAN PO PRN (22:18)
[2018-07-11] MEDS ORDERED: NACL 0.9% IR ONE (22:50)
[2018-07-11] MEDS ORDERED: WATER FOR IRRIG STERILE IR ONE (22:50)
[2018-07-11] MEDS ORDERED: SODIUM CHLORIDE FLUSH SYRINGE 10 ML IV NR ×2 (23:00→23:45)
[2018-07-11 23:26] LABS: Alanine Aminotransferase 6 units/L (7-56)
[2018-07-11] MEDS ORDERED: NEO SYNEPHRINE/NS Syringe(OR USE) IV ONE (23:40)
[2018-07-11] MEDS ORDERED: MORPHINE IV PRN ×2 (23:58)
[2018-07-11] MEDS ORDERED: TYLENOL PO PRN (23:58)
[2018-07-11] MEDS ORDERED: NORCO 5/325 PO PRN (23:58)
[2018-07-11] MEDS ORDERED: TORADOL IV PRN (23:58)
[2018-07-11] MEDS ORDERED: SENOKOT PO PRN (23:58)
[2018-07-11] MEDS ORDERED: ANUCORT-HC PR PRN (23:58)
[2018-07-11] MEDS ORDERED: ZOFRAN IV PRN (23:58)
[2018-07-11] MEDS ORDERED: TUCKS PAD TP PRN (23:58)
[2018-07-11] MEDS ORDERED: LANSINOH TP PRN (23:58)
[2018-07-11] MEDS ORDERED: MILK OF MAGNESIA PO PRN (23:58)
--- NOTE | 2018-07-12 00:09 | Operative Report ---
Operative Report Operative Report: Preoperative diagnosis 1. SIUP at 38 weeks and 6 days gestation in labor. 2. Spontaneous rupture of membranes. 3. Previous C/section. 4. Gestational HTN. 5. Gestational diabetes. 6. Morbid obesity. 7. History of pituitary tumor. Postoperative diagnosis: same as preoperative diagnosis. Procedure: Repeat low-transverse section. Surgeon: Dr. Sykes Audio Specialist: none Anesthesia: epidural. IVF: RL 1.3 liters EBL: 500 cc Urine: 100 cc clear Complications: none. Intraoperative findings: 1. A female infant found in an EVA position, delivered at 11:14 PM, Apgars 8 at 1 minute and 9 at 5 minutes, weight 6 lbs. 7 oz. 2. Normal fallopian tubes and ovaries bilaterally. Procedure details: Risks, benefits, and alternatives of the procedure were discussed in detail with the patient which included but not limited to the risk of infection, hemorrhage requiring blood transfusion, injury to the bowel or bladder and blood vessels. The patient expressed understanding, her questions were answered, and she gave informed consent. The patient was taken to the operating room with an IV fluid infusing Ringers lactate. In the operating room, she was placed in a sitting position and given spinal anesthesia. She was then placed in a dorsal supine position with a leftward tilt. Blake catheter in Venodyne boots were placed. The abdomen was washed and she was prepared and draped in usual sterile fashion. After confirming adequate anesthesia, the Pfannenstiel skin incision was made in the lower abdomen about 2 cm above the pubic symphysis using the scalpel. This incision was carried down to the underlying fascia using the Bovie. The fascia was opened bilaterally in a curvilinear fashion using the Bovie. 2 straight Kocker clamps were used to grasp the upper edge of the fascia from which the underlying rectus abdominis muscles was dissected off using the Bovie. A similar procedure was done with the lower edge of the fascia to dissect the underlying rectus abdominis muscle. The muscle was bluntly from the midline by pulling. The parietal peritoneum was grasped with 2 hemostat clamps and entered sharply using Metzenbaum scissors. A quick survey of the anatomy revealed a gravid uterus, normal fallopian tubes and ovaries bilaterally. A bladder flap was created. Isak'O retractor was placed in the incision for proper visualization. A low transverse uterine incision was made using the scapel. There was copious amount of clear amniotic fluids. The infant was foun d in an EVA position, the head was delivered atraumatically followed by the delivery of the shoulders and the rest of the body at 11:14 PM. The cord was clamped 2 and cut and the was handed off to the waiting senior validation engineer. The was a female, Apgars were 8 at 1 minute and 9 at 5 minutes, weight was 6 pounds and 7 ounces. Cord blood was collected. The placenta was delivered manually and it was complete with a three-vessel cord. The uterine cavity was cleaned of clots and debris using dry lap sponges. The uterine incision was repaired in a running locked fashion using 0 Vicryl sutures. A second layer of imbrication was placed. The gutters were cleaned of clots and debris using dry lap sponges. After confirming adequate hemostasis, the instruments were removed from the abdominal cavity. The rectus muscle was reapproximated in an interrupted fashion using 0 Vicryl sutures. The fascia was closed in a running fashion using 0 Vicryl sutures. The skin was closed with carlos. Sterile dressing was placed. The counts of laps, needles, sponges, and instruments were correct 2. The patient tolerated the procedure well, she was taken to the recovery room in a stable condition.
[2018-07-12 00:40] LABS: Uric Acid 4.5 mg/dL (3.5-7.6)
[2018-07-12] MEDS: TORADOL IV PRN ×2 (00:45→10:04)
[2018-07-12] MEDS ORDERED: HEMABATE IM ONE (02:25)
[2018-07-12] MEDS: IMODIUM PO PRN ×2 (04:19→06:35)
[2018-07-12] MEDS ORDERED: D5LR 1,000 ML IV SCH (05:00)
[2018-07-12 05:06] LABS: Hemoglobin 8.9 gm/dl (10.1-14.3); Mean Corpuscular HGB Conc 32 % (30-34); Mean Corpuscular Volume 79 fl (79-97); Platelet Count 176 K/mm3 (140-440); Red Blood Count 3.55 M/mm3 (3.65-5.03); Red Cell Distribution Width 16.6 % (13.2-15.2)
--- NOTE | 2018-07-12 05:56 | Post Anesthesia Evaluation ---
- Post Anesthesia Evaluation Patient Participated: Yes Airway Patent: Yes Stable Respiratory Function: Yes Nausea/Vomiting: No Temp > 96.8F: Yes Pain Manageable: Yes Adequeate Hydration: Yes Anesthesia Complications: No Block Receding Appropriately: Yes Patient on Ventilator: No
[2018-07-12 07:03] LABS: Bilirubin,Urine NEG (Negative); Blood,Urine MOD (Negative); Color,Urine Straw (Yellow); Mucus,Urine FEW /HPF; Protein,Urine <15 mg/dL mg/dL (Negative); Urobilinogen,Urine < 2.0 mg/dL (<2.0)
[2018-07-12] MEDS: PRENATAL VITAMIN PO SCH (10:04)
[2018-07-12] MEDS: FEOSOL PO SCH (10:04)
--- NOTE | 2018-07-12 10:06 | Progress Note ---
Assessment and Plan (1) Repeat section Current Visit: Yes Status: Acute Stable Pain well controlled Abdominal Binder ordered Encouraged ambulation in room (4) Obesity Current Visit: Yes Status: Acute Qualifiers: Obesity type: due to excess calories (5) Gestational HTN Current Visit: Yes Status: Acute Plan to address problem: Toxemia labs wnl VSS (6) Anemia Current Visit: Yes Status: Acute Qualifiers: Anemia type: iron deficiency (7) History of benign neoplasm of brain Current Visit: Yes Status: Acute Plan to address problem: Patient has been stable since her surgery in 2014. She has not followed up with her surgeon and has not had any follow up MRI since her surgery. Subjective - Subjective Date of service: 07/12/18 Principal diagnosis: POD#1 s/p Repeat c/s Interval history: See H&P and operative note Patient reports: appetite normal, voiding normally, pain well controlled, flatus, no dizzy ambulation, no bowel movement [place]: doing well, nursing well Objective - Vital Signs Latest vital signs: Vital Signs Temp Pulse Resp BP BP Pulse Ox 07/12/18 07:49 97.5 F L 75 20 101/49 98 07/12/18 04:21 98.7 F 77 18 106/49 97 07/12/18 03:55 92 H 99 07/12/18 03:50 84 99 07/12/18 03:45 80 99 07/12/18 03:40 85 99 07/12/18 03:35 90 99 07/12/18 03:33 88 112/56 07/12/18 03:32 93 H 94 07/12/18 03:30 92 H 99 07/12/18 03:25 91 H 99 07/12/18 03:20 93 H 100 07/12/18 03:15 96 H 99 07/12/18 03:10 96 H 97 07/12/18 03:05 107 H 98 07/12/18 03:03 100 H 116/56 07/12/18 03:00 101 H 98 07/12/18 02:55 95 H 97 07/12/18 02:50 100 H 98 07/12/18 02:45 103 H 98 07/12/18 02:40 98 H 97 07/12/18 02:35 109 H 98 07/12/18 02:32 107 H 118/57 07/12/18 02:30 104 H 98 07/12/18 02:25 106 H 97 07/12/18 02:20 110 H 96 07/12/18 02:15 108 H 97 07/12/18 02:10 107 H 98 07/12/18 02:05 103 H 97 07/12/18 02:02 100 H 113/59 07/12/18 02:01 98.1 F 99 H 18 113/59 97 07/12/18 02:00 96 H 98 07/12/18 01:20 98.1 F 73 11 L 91/42 99 07/12/18 01:07 98 H 98/61 07/12/18 01:05 74 13 93/46 98 07/12/18 00:56 18 07/12/18 00:50 72 12 102/57 100 07/12/18 00:45 18 07/12/18 00:35 79 19 105/63 98 07/12/18 00:20 75 15 106/59 98 07/12/18 00:15 83 12 97/54 99 07/12/18 00:09 97.9 F 89 17 105/62 98 07/11/18 18:37 98.9 F 20 Intake and Output 07/11/18 07/12/18 07/12/18 23:59 07:59 15:59 Output Total 1500 Balance -1500 Output: Urine 1500 Indwelling Catheter 1400 Uretheral (Blake) 100 Other: Total, Output Amount 1400 Weight 116.12 kg Estimated Blood Loss 500 - Exam Breasts: Present: normal, Cardiovascular: Present: Regular rate, Normal S1, Normal S2, No murmurs Lungs: Present: Clear to auscultation, Normal air movement Abdomen: Present: normal appearance, soft, tenderness (as expected post-op), normal bowel sounds. Absent: distention Vulva: both: normal Extremities: Present: normal Deep Tendon Reflex Grade: Normal +2 Incision: Present: normal, dry, intact, dressed (Pressure dressing CDI) - Labs Labs: Abnormal lab results 07/11/18 07/11/18 07/12/18 Range/Units 20:53 20:53 04:49 WBC 11.9 H (4.5-11.0) K/mm3 RBC 3.55 L (3.65-5.03) M/mm3 Hgb 8.9 L (10.1-14.3) gm/dl Hct 28.0 L (30.3-42.9) % MCV 77 L (79-97) fl MCH 26 L 25 L (28-32) pg RDW 16.7 H 16.6 H (13.2-15.2) % [place] % (Auto) 9.0 H (0.0-7.3) % Creatinine 0.5 L (0.7-1.2) mg/dL ALT 6 L (7-56) units/L Lactate Dehydrogenase 324 H (91-180) units/L
[2018-07-12] MEDS: PERCOCET 5/325 PO PRN ×2 (11:49→18:40)
[2018-07-12 12:22] LABS: Hematocrit 27.2 % (30.3-42.9); Hemoglobin 8.7 gm/dl (10.1-14.3)
[2018-07-12] MEDS: IBUPROFEN PO PRN (18:41)
[2018-07-13] MEDS: PERCOCET 5/325 PO PRN ×5 (00:59→23:31)
[2018-07-13] MEDS: IBUPROFEN PO PRN ×4 (00:59→23:31)
[2018-07-13] MEDS: MYLICON PO PRN ×2 (01:01→08:15)
[2018-07-13] MEDS ORDERED: INFED IM ONE (10:00)
--- NOTE | 2018-07-13 10:20 | Progress Note ---
Assessment and Plan A: POD #2 Asymptomatic Anemia GDM A1 Obesity Hx of Duy Tumor P: Follow Routine PostOp Orders Continue FeSO4 as ordered D/C home in the AM RTO in One Week Subjective - Subjective Date of service: 07/13/18 Principal diagnosis: POD#1 s/p Repeat c/s Patient reports: appetite normal, voiding normally, pain well controlled, flatus, ambulating normally : doing well Objective - Vital Signs Latest vital signs: Vital Signs Temp Pulse Resp BP BP Pulse Ox 07/13/18 08:07 98.1 F 81 18 103/57 07/13/18 00:54 98.7 F 90 16 107/54 98 07/12/18 18:40 20 07/12/18 18:38 82 103/61 100 07/12/18 16:39 97.9 F 77 20 85/53 98 07/12/18 12:43 98.8 F 91 H 20 96/55 96 07/12/18 11:49 19 Intake and Output 07/12/18 07/13/18 07/13/18 22:59 06:59 14:59 Intake Total 300 200 480 Balance 300 200 480 Intake: Oral 200 480 Intake, Free Water 300 Other: Total, Intake Amount 200 480 - Exam Breasts: Present: normal Cardiovascular: Present: Regular rate Lungs: Present: Clear to auscultation, Normal air movement Abdomen: Present: normal appearance, soft, normal bowel sounds Uterus: Present: normal, firm, fundal height below umbilicus Extremities: Present: normal Incision: Present: normal, dry, intact, other ([place] in Place) - Labs Labs: Abnormal lab results 07/12/18 Range/Units 12:10 Hgb 8.7 L (10.1-14.3) gm/dl Hct 27.2 L (30.3-42.9) %
--- NOTE | 2018-07-13 10:23 | Discharge Summary ---
Providers - Providers Date of Admission: 07/11/18 22:05 Date of discharge: 07/14/18 Attending physician: MAIK BRAGG MD Primary care physician: MAIK BRAGG MD Hospitalization Reason for admission: section Delivery: Procedure: repeat low transverse Episiotomy: none Laceration: none Incision: normal, dry, intact Other procedures: none complications: none Discharge diagnosis: IUP at term delivered [place] baby: female Condition at discharge: Good Disposition: DC-01 TO HOME OR SELFCARE Plan - Provider Discharge Summary Activity: routine, no sex for 6 weeks, no heavy lifting 4 weeks, no strenuous exercise Diet: routine Instructions: routine Additional instructions: [] Smoking cessation referral if applicable(refer to patient education folder for contact #) [] Refer to [facility]'s [facility] Booklet Call your doctor immediately for: * Fever > 100.5 * Heavy vaginal bleeding ( >1 pad per hour) * Severe persistent headache * Shortness of breath * Reddened, hot, painful area to leg or breast * Drainage or odor from incision. * Keep incision clean and dry at all times and follow doctor's instructions regarding bathing/showering - Follow up plan Follow up: MAIK BRAGG MD [Primary Care Provider] - 7 Days
[2018-07-13] MEDS: PRENATAL VITAMIN PO SCH (10:40)
[2018-07-13] MEDS: FEOSOL PO SCH (10:40)
[2018-07-14] MEDS: IBUPROFEN PO PRN (06:15)
[2018-07-14] MEDS: PERCOCET 5/325 PO PRN ×2 (06:15→11:16)
[2018-07-14] MEDS: PRENATAL VITAMIN PO SCH (09:42)
[2018-07-14] MEDS: FEOSOL PO SCH (09:42)
[2018-07-14 14:17] VITALS: BP 95/55
== END 2018-07-14 14:54 | disposition home or self-care (01) | DRG 765 ==
LOC: TRG 17:35 → APU 22:05 → OB 07-12 04:15
PROVIDERS: ADMIT Obstetrics & Gynecology; ATTEND Obstetrics & Gynecology
PROC: 10D00Z1 Extraction of Products of Conception, Low, Open Approach (ICD-10-PCS; principal; 2018-07-11)
DX: O34.211 Maternal care for low transverse scar from previous cesarean delivery (principal); O13.4 Gestational [pregnancy-induced] hypertension without significant proteinuria, complicating childbirth; O24.429 Gestational diabetes mellitus in childbirth, unspecified control; E66.01 Morbid (severe) obesity due to excess calories; O99.02 Anemia complicating childbirth; O99.52 Diseases of the respiratory system complicating childbirth; J45.909 Unspecified asthma, uncomplicated; O99.62 Diseases of the digestive system complicating childbirth; K21.9 Gastro-esophageal reflux disease without esophagitis; O99.344 Other mental disorders complicating childbirth; F41.9 Anxiety disorder, unspecified; D64.9 Anemia, unspecified; O99.214 Obesity complicating childbirth; Z90.49 Acquired absence of other specified parts of digestive tract; Z3A.38 38 weeks gestation of pregnancy; Z37.0 Single live birth; Z71.3 Dietary counseling and surveillance; Z88.1 Allergy status to other antibiotic agents; Z88.0 Allergy status to penicillin; Z79.899 Other long term (current) drug therapy
CPT/HCPCS: 36415; 76815; 81001; 82565; 82962; 83615; 84450; 84460; 84550; 85014; 85018; 85025; 85027; 86850; 86900; 86901; G0378; J1170; J1750; J1885; J2210; J2270; J2370; J2590; J3010; J7120; J7121